=== PATIENT | male | born 1970 | race Caucasian/White ===

== ENCOUNTER → 2017-12-14 13:05 | Outpatient (CLI) | payer OTHER, SELFPAY ==
--- NOTE | 2017-12-14 | DI.ECHO.S_ITS ---
[place]---------+ [facility] +---------+ : : [address] : : : : [id number] : : : : Phone: [phone]+ Echocardiogram Report + + :Name: RENITA HUGHES Study Date: 12/14/2017 Height: 70 in : :[facility] Weight: 210 lb : : Gender: Male BSA: 2.1 m2 : :: 1970 Age: 47 yrs BP: 146/98 mmHg: :Reason For Study: Chest pain : : Performed By: Lydia Dawson : :Referring: LOLITA CELAYA : + + Interpretation Summary The left ventricle is normal in size, wall thickness, and systolic function without any focal wall motion abnormalities. The ejection fraction is estimated to be 60-65%. Diastolic parameters suggest probable normal left ventricular diastolic function and normal filling pressures. The right ventricle grossly appears normal in size with probable normal systolic function. The right ventricular systolic pressure is estimated to be at least 33 mmHg based on an estimated right atrial pressure of 3 mm Hg. The left atrium is moderately dilated. The right atrium is mildly dilated. There is no significant valvular heart disease. The aortic root is mildly dilated. The ascending aorta is moderately enlarged. The aortic arch is mild-moderately enlarged. Procedure: A two-dimensional transthoracic echocardiogram with color flow and Doppler was performed. The study quality was technically adequate. Comparison is made with the echocardiogram of 3-28-06. The patient was in normal sinus rhythm during the exam. Left Ventricle: The left ventricle is normal in size, wall thickness, and systolic function without any focal wall motion abnormalities. The ejection fraction is estimated to be 60-65%. Diastolic parameters suggest probable normal left ventricular diastolic function and normal filling pressures. Right Ventricle: The right ventricle grossly appears normal in size with probable normal systolic function. Atria: The left atrium is moderately dilated. The right atrium is mildly dilated. The interatrial septum is intact with no evidence for an atrial septal defect. Mitral Valve: The mitral valve is normal in structure and function. There is no mitral regurgitation noted. Aortic Valve: The aortic valve is trileaflet. The aortic valve opens well. There is trace aortic regurgitation. Tricuspid Valve: The tricuspid valve is normal in structure and function. There is a trace or physiologic amount of tricuspid regurgitation. The right ventricular systolic pressure is estimated to be at least 33 mmHg based on an estimated right atrial pressure of 3 mm Hg. Pulmonic Valve: The pulmonic valve is normal in structure and function. There is trace pulmonic regurgitation. There is no significant valvular heart disease. Great Vessels: The aortic root is mildly dilated. The ascending aorta is moderately enlarged. The aortic arch is mild-moderately enlarged. The IVC is of normal diameter and collapses greater than 50% with a sniff. This suggests a low right atrial pressure of 3 mm Hg. Pericardium/ Pleura There is no pericardial effusion. There is no pleural effusion. MMode/2D Measurements & Calculations LVIDd: 5.1 cm Ao root diam: 4.2 cm LVIDs: 3.6 cm Aortic Jxn: 3.5 cm FS: 28.9 % asc Aorta Diam: 4.1 cm EPSS: 0.91 cm Ao Arch Diam (Prox Trans): 3.8 cm IVSd: 1.1 cm LVPWd: 1.0 cm LV mclean. diameter/BSA (cm/m^2): 2.4 LV sys. diameter/BSA (cm/m^2): 1.7 LA dimension: 4.5 cm RA long axis: 5.4 cm LA A2 area: 24.7 cm2 RA area: 22.5 cm2 LA A4 area: 26.4 cm2 RA vol: 79.2 ml LA length (vol): 5.9 cm RA : 37.2 ml/m2 LA vol: 94.1 ml IVC diam: 2.0 cm LA vol index: 44.2 ml/m2 Doppler Measurements & Calculations Ao V2 max: 136.7 cm/sec MV E max yannick: 78.5 cm/sec Ao V2 mean: 92.3 cm/sec MV A max yannick: 80.0 cm/sec Ao max P.5 mmHg MV E/A: 0.98 Ao mean P.9 mmHg Med Peak E' Yannick: 8.2 cm/sec Ao V2 VTI: 26.6 cm E/E' med: 9.6 Lat Peak E' Yannick: 10.0 cm/sec E/E' lat: 7.8 E/e' average: 8.7 MV dec time: 0.27 sec MV P1/2t: 79.1 msec TR max yannick: 271.5 cm/sec MV P1/2t max yannick: 78.0 cm/sec TR max P.5 mmHg MVA(P1/2t): 2.8 cm2 PA V2 max: 95.3 cm/sec PA V2 mean: 58.8 cm/sec PA mean P.7 mmHg PA Accel Time: 0.12 sec Reading Physician:NEAL
--- NOTE | 2017-12-14 | DI.RAD.S_ITS ---
PROCEDURE: XR CHEST 2V INDICATIONS: Other chest pain TECHNIQUE: 2 views of the chest were acquired. COMPARISON: [facility], , CHEST 2VW, 04/16/2005, 11:53. [facility], CR, CHEST 2VW, 11/30/2006, 11:50. [facility], CR, CHEST 2 VIEW, 06/02/2016, 8:17. FINDINGS: Surgical changes and devices: None. Lungs and pleura: No pleural effusions or pneumothorax. Lungs are clear. Lucency under the left hemidiaphragm. Mediastinum: Mediastinal contours are normal. Heart size is normal. Bones and chest wall: No suspicious bony abnormalities. Soft tissues appear unremarkable. IMPRESSION: 1. No acute cardiopulmonary disease. 2. Lucency under the left hemidiaphragm is probably air in the stomach. If there is left upper quadrant abdominal pain or clinical concern for viscus perforation, further evaluation with supine and upright abdominal x-ray is recommended. Dictated by: Joana Randle M.D. on 12/14/2017 at 13:37 Approved by: Joana Randle M.D. on 12/14/2017 at 13:38
== END ==
PROVIDERS: PCP Registered Nurse; Visit Provider Registered Nurse
DX: R07.89 Other chest pain (principal); R00.2 Palpitations; R06.2 Wheezing; E78.00 Pure hypercholesterolemia, unspecified; I10 Essential (primary) hypertension
CPT/HCPCS: 71046; 93306

== ENCOUNTER → 2017-12-16 09:56 | Outpatient (CLI) | payer OTHER, SELFPAY ==
--- NOTE | 2017-12-16 | DI.RAD.S_ITS ---
PROCEDURE: XR ABDOMEN MIN 2V INDICATIONS: ABDOMINAL PAIN TECHNIQUE: 2 views of the abdomen were acquired. COMPARISON: [facility], CR, XR CHEST 2V, 12/14/2017, 13:21. FINDINGS: Surgical changes and devices: None. Bowel: The lucency under the left hemidiaphragm seen on the last chest x-ray is caused by the gastric bubble. No pneumoperitoneum. The bowel gas pattern is normal. Soft tissues: No masses; visualized solid organ contours appear normal in size. No suspicious abdominal calcifications. Bones: No suspicious bony abnormalities. IMPRESSION: No free peritoneal air. Dictated by: Joana Randle M.D. on 12/16/2017 at 11:22 Approved by: Joana Randle M.D. on 12/16/2017 at 11:24
== END ==
PROVIDERS: PCP Registered Nurse; Visit Provider Registered Nurse
DX: R10.9 Unspecified abdominal pain (principal); R07.89 Other chest pain
CPT/HCPCS: 74019

== ENCOUNTER → 2018-12-23 08:16 | Outpatient (CLI) | payer OTHER, SELFPAY ==
[2018-12-23 09:15] LABS: Alanine Aminotransferase 33 IU/L (<50); Albumin 4.8 g/dL (3.5-5.0); Albumin Globulin Ratio 1.4 (1.0-2.8); Alkaline Phosphatase 47 U/L (38-126); Aspartate Aminotransferase 35 IU/L (17-59); BUN Creatinine Ratio 21.3 (6-22); Bilirubin Total 0.6 mg/dL (0.2-1.3); Blood Urea Nitrogen 17 mg/dL (9-20); Calcium 9.9 mg/dL (8.4-10.2); Carbon Dioxide 27 mmol/L (22-32); Chloride 101 mmol/L (98-107); Cholesterol 268 mg/dL (140-199); Estimated Glomerular Filt Rate > 60.0 mL/min (>60); Globulin 3.4 g/dL (1.7-4.1); Glucose 89 mg/dL (70-100); HDL Cholesterol 37 mg/dL (40-60); HEMOLYSIS < 15 (0-50); LDL Cholesterol Calculated 200 mg/dL (<100); Potassium 4.6 mmol/L (3.4-5.1); Sodium 138 mmol/L (137-145); Total Protein 8.2 g/dL (6.3-8.2); Triglycerides 157 mg/dL (35-150)
== END ==
PROVIDERS: PCP Registered Nurse; Visit Provider Registered Nurse
DX: E78.00 Pure hypercholesterolemia, unspecified (principal); I10 Essential (primary) hypertension
CPT/HCPCS: 36415; 80053; 80061

== ENCOUNTER → 2019-01-02 09:04 | Outpatient (CLI) | payer OTHER, SELFPAY ==
[2019-01-02 10:06] LABS: Add Manual Diff / Slide Review NO; Basophils Absolute Auto 100 /uL (0-100); Basophils Percent Auto 1.2 % (0-2); Eosinophils Absolute Auto 400 /uL (0-450); Eosinophils Percent Auto 5.5 % (2-4); Hematocrit 43.2 % (41-53); Hemoglobin 14.9 g/dL (13.5-17.5); Lymphocytes Absolute Auto 2400 /uL (1100-4500); Lymphocytes Percent Auto 30.9 % (25-40); Mean Corpuscular HGB Conc 34.5 % (30-36); Mean Corpuscular Hemoglobin 30.8 PG (26-34); Mean Corpuscular Volume 89.3 fL (80-100); Monocytes Absolute Auto 900 /uL (0-900); Neutrophils Absolute Auto 3900 /uL (1500-7000); Neutrophils Percent Auto 50.4 % (50-75); Platelet Count 295 X10^3/uL (150-400); Red Blood Cell Count 4.84 X10^6/uL (4.5-5.9); Red Cell Distribution Width 13.5 % (11.6-14.8); White Blood Cell Count 7.8 X10^3/uL (4.5-11.0)
== END ==
PROVIDERS: PCP Registered Nurse; Visit Provider Registered Nurse
DX: I10 Essential (primary) hypertension (principal); E78.00 Pure hypercholesterolemia, unspecified
CPT/HCPCS: 36415; 85025